=== PATIENT | female | born 1995 | race Caucasian/White ===

== ENCOUNTER 2019-02-12 10:53 | Emergency (ER) | payer MEDICAID ==
[~2019-02-12] VITALS: Ht 167.6 cm; Wt 65.0 kg
[2019-02-12] MEDS ORDERED: IBUPROFEN 400MG TABLET PO ONE (13:15)
[2019-02-12 14:34] VITALS: BP 115/87
== END 2019-02-12 14:35 | disposition home or self-care (01) ==
LOC: ER 11:01
DX: S82.845A Nondisplaced bimalleolar fracture of left lower leg, initial encounter for closed fracture (principal); Y93.39 Activity, other involving climbing, rappelling and jumping off; Y93.89 Activity, other specified; Y92.832 Beach as the place of occurrence of the external cause
CPT/HCPCS: 29515; 73610; 99283

== ENCOUNTER 2019-03-08 17:51 | Emergency (ER) | payer MEDICAID ==
[~2019-03-08] VITALS: Ht 157.5 cm; Wt 52.0 kg
[2019-03-08] MEDS ORDERED: IBUPROFEN 600MG TABLET PO ONE (19:00)
[2019-03-08 20:00] VITALS: BP 125/70
== END 2019-03-08 20:18 | disposition home or self-care (01) ==
LOC: ER 17:51
DX: S82.55XA Nondisplaced fracture of medial malleolus of left tibia, initial encounter for closed fracture (principal); S82.832A Other fracture of upper and lower end of left fibula, initial encounter for closed fracture; W19.XXXA Unspecified fall, initial encounter; Y93.9 Activity, unspecified; Y92.9 Unspecified place or not applicable
CPT/HCPCS: 73610; 81025; 99283